=== PATIENT | male | born 1980 | race Caucasian/White ===

== ENCOUNTER 2016-11-06 09:40 | Emergency (ER) | payer OTHER, BC ==
[2016-11-06] MEDS ORDERED: KETOROLAC 30 MG/ML VIAL (J1885) As Ordered ONE (10:44)
[2016-11-06] MEDS ORDERED: ONDANSETRON 4MG/2ML VIAL (J2405) As Ordered ONE (10:44)
[2016-11-06 10:49] LABS: BASO # 0.1 K/mm3 (0.0-0.2); BASO % 2.3 % (0.0-1.0); EOS # 0.1 K/mm3 (0.0-0.50); EOS % 2.2 % (0.0-3.0); LARGE UNSTAINED CELL # 0.1 K/mm3 (0.0-0.4); LARGE UNSTAINED CELL % 1.6 % (0.0-4.0); LYMPH % 34.4 % (24.0-44.0); MEAN CORPUSCULAR HEMOGLOBIN 28.7 pg (27.0-33.0); MEAN CORPUSCULAR HGB CONC 34.9 g/dl (32.0-36.5); MEAN CORPUSCULAR VOLUME 82.2 fl (80.0-96.0); MONO # 0.3 K/mm3 (0.0-0.8); MONO % 5.1 % (0.0-5.0); NEUTROPHILS % 54.3 % (36.0-66.0); PLATELET COUNT, AUTOMATED 238 k/mm3 (150-450); RED CELL DISTRIBUTION WIDTH 13.4 % (11.5-14.5); WHITE BLOOD COUNT 5.6 K/mm3 (4.0-10.0)
[2016-11-06 11:09] LABS: ALBUMIN 4.5 GM/DL (3.2-5.2); ALBUMIN/GLOBULIN RATIO 1.29 (1.00-1.93); ALKALINE PHOSPHATASE 98 U/L (45-117); ALT/SGPT 38 U/L (12-78); AMYLASE 88 U/L (25-115); ANION GAP 6 MEQ/L (8-16); AST/SGOT 16 U/L (15-37); BILIRUBIN,DIRECT 0.2 MG/DL (0.0-0.2); BILIRUBIN,TOTAL 0.5 MG/DL (0.2-1.0); BLOOD UREA NITROGEN 12 MG/DL (7-18); CALCIUM LEVEL 9.4 MG/DL (8.5-10.1); CARBON DIOXIDE LEVEL 32 MEQ/L (21-32); CHLORIDE LEVEL 105 MEQ/L (98-107); CREATININE FOR GFR 1.15 MG/DL (0.70-1.30); GLOMERULAR FILTRATION RATE > 60.0 (>60); GLUCOSE, FASTING 99 MG/DL (70-105); POTASSIUM SERUM 3.9 MEQ/L (3.5-5.1); SODIUM LEVEL 143 MEQ/L (136-145)
[2016-11-06] MEDS ORDERED: ISOVUE-370 76% 100ML VIAL (Q9967) As Ordered ONE (11:15)
--- NOTE | 2016-11-06 12:00 | REP ---
CT STUDY OF THE ABDOMEN AND PELVIS WITH IV BUT WITHOUT ORAL CONTRAST: HISTORY: Lower abdominal pain and rectal bleeding. CT contrast dose: 100 mL of Isovue [address] FINDINGS: Digital sandal parts assembler radiograph is unremarkable. The lung bases are clear. The liver and the spleen are homogeneous in texture. The spleen is felt to be mildly enlarged measuring up to 14 cm in greatest dimension. No focal splenic lesion is seen. There is an accessory splenule however anteriorly and inferiorly adjacent to the spleen. This measures 3 cm in greatest diameter. No pancreatic abnormality is observed. No adrenal lesion is seen on either side. The gallbladder is unremarkable, small and contracted in appearance. The kidneys enhance symmetrically are morphologically intact. No retroperitoneal mass or adenopathy is seen. A normal caliber aorta is seen. Small and large intestinal bowel loops are unremarkable. A normal appendix is seen. No abdominal wall defect is observed. There are one or two dystrophic calcifications in the prostate. Seminal vesicles and urinary bladder are intact. Bone window settings shows no acute bony abnormality. There is an old wedge compression fracture deformity at the L3 vertebral body level with secondary osteophyte formation anteriorly. IMPRESSION: 1. Mildly enlarged spleen, 14 cm. 2. Otherwise no acute intra-abdominal abnormality. Dystrophic calcifications in the prostate gland. 3. Normal appendix .4. Old mild compression fracture deformity at L3. Signed by Arnulfo Willson MD 11/06/2016 01:19 P
--- NOTE | 2016-11-06 13:43 | EDDOCDS ---
Physician Documentation [facility] Name: Alexi Carnes Age: 36 yrs Sex: Male : 1980 Arrival Date: 11/06/2016 Time: 09:40 Bed I1 / M1 Private MD: [facility] Disposition: 11/06/16 13:15 Discharged to Home/Self Care. Impression: Lower abdominal pain, unspecified, Hemorrhage of anus and rectum - Bloody Stool, Splenomegaly, not elsewhere classified, Calculus of prostate - Prostate Calcifications on CT abd/pelvis, Wedge compression fracture of first lumbar vertebra - L3. - Condition is Stable. - Discharge Instructions: Abdominal Pain, Adult, Gastrointestinal Bleeding, [id number], Back, Compression Fracture, Enlarged Spleen. - Prescriptions for Bentyl 20 mg Oral Tablet - take 1 tablet by ORAL route every 6 hours As needed; 20 tablet. ZOFRAN ODT 4 mg - dissolve 1 tablet by ORAL route 4 times per day As needed do not chew, do not swallow whole; 10 tablet. Colace 100 mg Oral Tablet - take 1 tablet by ORAL route every 12 hours; 14 tablet. - Medication Reconciliation, Local Pharmacy Hours form. - Follow up: [facility]; When: 1 - 2 days; Reason: Recheck today's complaints, Continuance of care. Follow up: Emergency Department; Reason: Worsening of conditions. Follow up: [facility]; When: Call to arrange an appointment; Reason: Further diagnostic work-up, Recheck today's complaints, Continuance of care. Follow up: Orthopaedics, [facility]; When: Call to arrange an appointment; Reason: Further diagnostic work-up, Recheck today's complaints, Continuance of care. - Problem is new. - Symptoms have improved. Historical: - Allergies: SULFA (SULFONAMIDES); - Home Meds: 1. Clonazepam Oral as needed 2. Bupropion Unknown Oral once daily (Last dose: 11/06/2016) - PMHx: Anxiety; PTSD; - PSHx: none; - Social history: Smoking status: Patient states was never smoker of tobacco. No barriers to communication noted, The patient speaks fluent Portuguese, Speaks appropriately for age. - Family history: Not pertinent. - : The pt / caregiver states he / she is not on anticoagulants. Home medication list is obtained from the patient. - Exposure Risk Screening:: None identified. Vital Signs: 11/06 09:42 BP 154 / 91; Pulse 81; Resp 16; Temp 97.8(O); Pulse Ox 97% ; Weight 90.72 kg / 200 lbs; cmb Height 6 ft. 0 in. (182.88 cm); Pain 0/10; 12:26 BP 121 / 75; Pulse 68; Resp 18; Temp 96.8; Pulse Ox 98% ; Pain 0/10; jam1 13:26 BP 132 / 80; Pulse 73; Resp 18; Temp 97.0; Pulse Ox 98% ; Pain 0/10; jam1 09:42 Body Mass Index 27.12 (90.72 kg, 182.88 cm) cmb MDM: 10:28 NS 0.9% 1000 ml IV at bolus once ordered. ef1 10:28 Ondansetron 4 mg IVP once ordered. ef1 10:28 ketorolac 30 mg IVP once ordered. ef1 10:28 IV Saline Lock ordered. ef1 10:28 Undress patient appropriately for examination ordered. ef1 10:29 Amylase Ordered. EDMS 10:29 Basic Metabolic Profile Ordered. EDMS 10:29 CBC with Diff Ordered. EDMS 10:29 Lipase Ordered. EDMS 10:29 Liver Profile Ordered. EDMS 10:29 Urinalysis Ordered. EDMS 10:29 Urine Culture Ordered. EDMS 10:29 CT ABD & PELVIS: IV Contrast Only Ordered. EDMS 10:29 NOTHING BY MOUTH+DIET ordered. EDMS 11:50 Financial registration complete. mm15 12:51 Basic Metabolic Profile Reviewed. ef1 12:51 CBC with Diff Reviewed. ef1 12:51 Amylase Reviewed. ef1 12:51 Lipase Reviewed. ef1 12:51 Liver Profile Reviewed. ef1 12:51 Urinalysis Reviewed. ef1 12:51 CT ABD & PELVIS: IV Contrast Only Reviewed. ef1 12:55 [facility] Payment Agreement was scanned into Real Time Content and attached to record. mm15 Administered Medications: 10:50 Drug: NS 0.9% 1000 ml [sodium chloride 0.9 % intravenous solution] Route: IV; Rate: mcp bolus; Site: right antecubital; 13:42 Follow up: IV Status: Completed infusion; IV Intake: 1000ml ms18 10:51 Drug: Ondansetron 4 mg [ondansetron HCl 2 mg/mL intravenous solution (2 mL)] Route: mcp IVP; Site: right antecubital; 13:42 Follow up: Response: No Adverse Reaction ms18 10:51 Drug: ketorolac 30 mg [ketorolac 30 mg/mL (1 mL) injection solution (1 mL)] Route: IVP; mcp Site: right antecubital; 13:43 Follow up: Response: No Adverse Reaction ms18 Signatures: Dispatcher [employer] Lis Schmitz RN RN kr3 Mariana Ricketts, PA-C PA-C ef1 René Brown mm15 Indu Shankar RN RN ms18 Elen Hickey RN [facility] The chart was reviewed and I authenticate all verbal orders and agree with the evaluation and treatment provided.Attachments: 12:55 [facility] Payment Agreement mm15 MTDD
--- NOTE | 2016-11-06 13:44 | EDDOCDS ---
Nurse's Notes [facility] Name: Alexi Carnes Age: 36 yrs Sex: Male : 1980 Arrival Date: 11/06/2016 Time: 09:40 Bed I1 / M1 Private MD: [facility] [place] Diagnosis: Lower abdominal pain, unspecified;Hemorrhage of anus and rectum-Bloody Stool;Splenomegaly, not elsewhere classified;Calculus of prostate-Prostate Calcifications on CT abd/pelvis;Wedge compression fracture of first lumbar vertebra-L3 Presentation: 11/06 09:46 Presenting complaint: Patient states: 'crapping' out blood for past week. Reports has kr3 been having difficulty with bowel movements for past week. Adult Sepsis Screening: The patient does not have new or worsening altered mentation. Patient's respiratory rate is less than 22. Systolic blood pressure is greater than 100. Patient has a qSOFA score of 0- Negative Sepsis Screen. Suicide/Homicide risk assessment- the patient denies having any suicidal and/or homicidal ideations and does not present with any other emotional, behavioral or mental health complaints. Status: Patient is not a sales service representative or dependent. Transition of care: patient was not received from another setting of care. 09:46 Acuity: BREEZY Level 3 kr3 09:46 Method Of Arrival: Walkin/Carried/Asstd kr3 Triage Assessment: 09:49 General: Appears in no apparent distress, comfortable, Behavior is cooperative. Pain: kr3 Denies pain. Pt Declines HIV testing. Respiratory: Respiratory effort is even, unlabored. GI: Reports bloody stools. Historical: - Allergies: SULFA (SULFONAMIDES); - Home Meds: 1. Clonazepam Oral as needed 2. Bupropion Unknown Oral once daily (Last dose: 11/06/2016) - PMHx: Anxiety; PTSD; - PSHx: none; - Social history: Smoking status: Patient states was never smoker of tobacco. No barriers to communication noted, The patient speaks fluent Panamanian, Speaks appropriately for age. - Family history: Not pertinent. - : The pt / caregiver states he / she is not on anticoagulants. Home medication list is obtained from the patient. - Exposure Risk Screening:: None identified. Screenin:32 Screening information is obtained from the patient. Fall risk: No risks identified. ms18 Assistance ADL's: requires no assistance with activities of daily living. Abuse/DV Screen: The patient / caregiver reports he/she is: not in a situation that causes fear, pain or injury. Nutritional screening: No deficits noted. Advance Directives: There is no living will. home support is adequate. Assessment: 11:32 General: Appears in no apparent distress, comfortable, Behavior is appropriate for age, ms18 cooperative. Neurological: Level of Consciousness is awake, alert, obeys commands, Oriented to person, place, time, Gait is steady, Speech is normal. Respiratory: Airway is patent Respiratory effort is even, unlabored. GI: Abdomen is non- distended. Derm: Skin is pink, warm & dry. 12:30 General: Pt in no acute distress. Awaiting CT results. Will continue to monitor pt. ms18 13:40 General: Appears in no apparent distress, comfortable, Behavior is appropriate for age, ms18 cooperative. Pain: Denies pain. Neurological: Level of Consciousness is awake, alert, obeys commands, Oriented to person, place, time. Respiratory: Airway is patent Respiratory effort is even, unlabored. GI: Abdomen is non- distended. Derm: Skin is pink, warm & dry. Vital Signs: 09:42 BP 154 / 91; Pulse 81; Resp 16; Temp 97.8(O); Pulse Ox 97% ; Weight 90.72 kg; Height 6 cmb ft. 0 in. (182.88 cm); Pain 0/10; 12:26 BP 121 / 75; Pulse 68; Resp 18; Temp 96.8; Pulse Ox 98% ; Pain 0/10; jam1 13:26 BP 132 / 80; Pulse 73; Resp 18; Temp 97.0; Pulse Ox 98% ; Pain 0/10; jam1 09:42 Body Mass Index 27.12 (90.72 kg, 182.88 cm) cmb Vitals: 09:42 Log In Time: November 06, 2016 at 09:40. cmb ED Course: 09:41 Patient visited by Enma Jay. cmb 09:41 Patient moved to Waiting cmb 09:42 [facility] [place] is Private Physician. cmb 09:43 Patient moved to Pre RCE cmb 09:48 Triage Initiated kr3 09:50 Patient moved to Triage 1 kr3 10:02 Mariana Ricketts PA-C is PHCP. ef1 10:02 Leslie Krause MD is Attending Physician. ef1 10:20 Patient visited by Mariana Ricketts PA-C. ef1 10:31 Patient moved to I1 / M1 kr3 10:34 Urinalysis Sent. kr3 10:34 Urine Culture Sent. kr3 10:42 Amylase Sent. mcp 10:42 Basic Metabolic Profile Sent. mcp 10:42 CBC with Diff Sent. mcp 10:42 Lipase Sent. mcp 10:42 Liver Profile Sent. mcp 10:43 Inserted saline lock: 18 gauge in right antecubital area and blood collected. The [facility] patient tolerated the procedure well. No procedures done that require assistance. Labs drawn. (by ED staff). Sent per order to lab. 10:51 Patient visited by Mariana Ricketts PA-C. ef1 11:21 Patient visited by Indu Shankar RN. ms18 11:[address] ms18 11:31 Patient moved to I1 / M1 srm 11:32 The patient / caregiver is instructed regarding the plan of care and ED course. ms18 Accompanied by Significant Other, Patient has correct armband on for positive identification. Placed in gown. Bed in low position. Property :Personal belongings accompany Pt. 12:34 CT ABD & PELVIS: IV Contrast Only Returned. EDMS 12:38 Patient visited by Indu Shankar RN. ms18 12:51 Patient visited by Mariana Ricketts PA-C. ef1 12:55 [facility] Payment Agreement was scanned into User Replay and attached to record. mm15 13:06 Patient visited by Mariana Ricketts PA-C. ef1 13:15 [facility] is Referral Physician. ef1 13:15 [facility] is Referral Physician. ef1 13:17 [facility]. ef1 13:40 Patient visited by Indu Shankar RN. ms18 13:40 Discontinued IV lock intact, bleeding controlled, pressure dressing applied, No ms18 redness/swelling at site. Administered Medications: 10:50 Drug: NS 0.9% 1000 ml [sodium chloride 0.9 % intravenous solution] Route: IV; Rate: mcp bolus; Site: right antecubital; 13:42 Follow up: IV Status: Completed infusion; IV Intake: 1000ml ms18 10:51 Drug: Ondansetron 4 mg [ondansetron HCl 2 mg/mL intravenous solution (2 mL)] Route: mcp IVP; Site: right antecubital; 13:42 Follow up: Response: No Adverse Reaction ms18 10:51 Drug: ketorolac 30 mg [ketorolac 30 mg/mL (1 mL) injection solution (1 mL)] Route: IVP; mcp Site: right antecubital; 13:43 Follow up: Response: No Adverse Reaction ms18 Intake: 13:42 IV: 1000.00ml; Total: 1000.00ml. ms18 Order Results: Lab Order: Amylase; SPEC'M 11/06/16 10:40 Test: AMYLASE; Value: 88; Range: 25-115; Units: U/L; Status: F Lab Order: Basic Metabolic Profile; SPEC'M 11/06/16 10:40 Test: GLUCOSE, FASTING; Value: 99; Range: 70-105; Units: MG/DL; Status: F Test: BLOOD UREA NITROGEN; Value: 12; Range: 7-18; Units: MG/DL; Status: F Test: CREATININE FOR GFR; Value: 1.15; Range: 0.70-1.30; Units: MG/DL; Status: F Test: GLOMERULAR FILTRATION RATE; Value: > 60.0; Range: >60; Status: F Test: SODIUM LEVEL; Value: 143; Range: 136-145; Units: MEQ/L; Status: F Test: POTASSIUM SERUM; Value: 3.9; Range: 3.5-5.1; Units: MEQ/L; Status: F Test: CHLORIDE LEVEL; Value: 105; Range: 98-107; Units: MEQ/L; Status: F Test: CARBON DIOXIDE LEVEL; Value: 32; Range: 21-32; Units: MEQ/L; Status: F Test: ANION GAP; Value: 6; Range: 8-16; Abnormal: Below low normal; Units: MEQ/L; Status: F Test: CALCIUM LEVEL; Value: 9.4; Range: 8.5-10.1; Units: MG/DL; Status: F Test Note: ; Units are mL/min/1.73 m2 Chronic Kidney Disease Staging per NKF: Stage I & II GFR >=60 Normal to Mildly Decreased Stage III GFR 30-59 Moderately Decreased Stage IV GFR 15-29 Severely Decreased Stage V GFR <15 Very Little GFR Left ESRD GFR <15 on BRICKLAYER APPRENTICE Lab Order: CBC with Diff; SPEC'M 11/06/16 10:40 Test: WHITE BLOOD COUNT; Value: 5.6; Range: 4.0-10.0; Units: K/mm3; Status: F Test: RED BLOOD COUNT; Value: 5.80; Range: 4.30-6.10; Units: M/mm3; Status: F Test: HEMOGLOBIN; Value: 16.7; Range: 14.0-18.0; Units: g/dl; Status: F Test: HEMATOCRIT; Value: 47.7; Range: 42.0-52.0; Units: %; Status: F Test: MEAN CORPUSCULAR VOLUME; Value: 82.2; Range: 80.0-96.0; Units: fl; Status: F Test: MEAN CORPUSCULAR HEMOGLOBIN; Value: 28.7; Range: 27.0-33.0; Units: pg; Status: F Test: MEAN CORPUSCULAR HGB CONC; Value: 34.9; Range: 32.0-36.5; Units: g/dl; Status: F Test: RED CELL DISTRIBUTION WIDTH; Value: 13.4; Range: 11.5-14.5; Units: %; Status: F Test: PLATELET COUNT, AUTOMATED; Value: 238; Range: 150-450; Units: k/mm3; Status: F Test: NEUTROPHILS %; Value: 54.3; Range: 36.0-66.0; Units: %; Status: F Test: LYMPH %; Value: 34.4; Range: 24.0-44.0; Units: %; Status: F Test: MONO %; Value: 5.1; Range: 0.0-5.0; Abnormal: Above high normal; Units: %; Status: F Test: EOS %; Value: 2.2; Range: 0.0-3.0; Units: %; Status: F Test: BASO %; Value: 2.3; Range: 0.0-1.0; Abnormal: Above high normal; Units: %; Status: F Test: LARGE UNSTAINED CELL %; Value: 1.6; Range: 0.0-4.0; Units: %; Status: F Test: NEUTROPHILS #; Value: 3.0; Range: 1.8-7.7; Units: K/mm3; Status: F Test: LYMPH #; Value: 2.0; Range: 1.5-4.5; Units: K/mm3; Status: F Test: MONO #; Value: 0.3; Range: 0.0-0.8; Units: K/mm3; Status: F Test: EOS #; Value: 0.1; Range: 0.0-0.50; Units: K/mm3; Status: F Test: BASO #; Value: 0.1; Range: 0.0-0.2; Units: K/mm3; Status: F Test: LARGE UNSTAINED CELL #; Value: 0.1; Range: 0.0-0.4; Units: K/mm3; Status: F Lab Order: Lipase; [facility]' 11/06/16 10:40 Test: LIPASE; Value: 335; Range: 73-393; Units: U/L; Status: F Lab Order: Liver Profile; [facility]' 11/06/16 10:40 Test: AST/SGOT; Value: 16; Range: 15-37; Units: U/L; Status: F Test: ALT/SGPT; Value: 38; Range: 12-78; Units: U/L; Status: F Test: ALKALINE PHOSPHATASE; Value: 98; Range: 45-117; Units: U/L; Status: F Test: BILIRUBIN,TOTAL; Value: 0.5; Range: 0.2-1.0; Units: MG/DL; Status: F Test: BILIRUBIN,DIRECT; Value: 0.2; Range: 0.0-0.2; Units: MG/DL; Status: F Test: TOTAL PROTEIN; Value: 8.0; Range: 6.4-8.2; Units: GM/DL; Status: F Test: ALBUMIN; Value: 4.5; Range: 3.2-5.2; Units: GM/DL; Status: F Test: ALBUMIN/GLOBULIN RATIO; Value: 1.29; Range: 1.00-1.93; Status: F Lab Order: Urinalysis; SPEC' 11/06/16 10:32 Test: APPEARANCE, URINE; Value: CLEAR; Range: CLEAR; Status: F Test: COLOR, URINE; Value: YELLOW; Range: YELLOW; Status: F Test: PH,URINE; Value: 5.0; Range: 5.0-9.0; Units: UNITS; Status: F Test: SPECIFIC GRAVITY URINE AUTO; Value: 1.018; Range: 1.002-1.035; Status: F Test: PROTEIN, URINE AUTO; Value: NEGATIVE; Range: NEGATIVE; Units: mg/dL; Status: F Test: GLUCOSE, URINE (UA) AUTO; Value: NEGATIVE; Range: NEGATIVE; Units: mg/dL; Status: F Test: KETONE, URINE AUTO; Value: NEGATIVE; Range: NEGATIVE; Units: mg/dL; Status: F Test: UROBILINOGEN, URINE AUTO; Value: 0.2; Range: 0.0-2.0; Units: mg/dL; Status: F Test: BILIRUBIN, URINE AUTO; Value: NEGATIVE; Range: NEGATIVE; Status: F Test: NITRITE, URINE AUTO; Value: NEGATIVE; Range: NEGATIVE; Status: F Test: LEUKOCYTE ESTERASE, URINE AUTO; Value: NEGATIVE; Range: NEGATIVE; Status: F Test: BLOOD, URINE BLOOD; Value: NEGATIVE; Range: NEGATIVE; Status: F Test: WBC, URINE AUTO; Value: 1; Range: 0-3; Units: /HPF; Status: F Test: RBC, URINE AUTO; Value: 1; Range: 0-3; Units: /HPF; Status: F Test: BACTERIA, URINE AUTO; Value: NEGATIVE; Range: NEGATIVE; Status: F Test: SQUAMOUS EPITHELIAL CELL UR AU; Value: 0; Range: 0-6; Units: /HPF; Status: F Test: MUCUS, URINE; Value: SMALL; Range: NEGATIVE; Status: F Test: HYALINE CAST, URINE AUTO; Value: 0; Range: 0-1; Units: /LPF; Status: F Radiology Order: CT ABD & PELVIS: IV Contrast Only Test: CT ABD & PELVIS: IV Contrast Only REASON FOR EXAMINATION: lower abd pain and rectal bleeding; CT STUDY OF THE ABDOMEN AND PELVIS WITH IV BUT WITHOUT ORAL CONTRAST:; ; HISTORY: Lower abdominal pain and rectal bleeding.; ; CT contrast dose: 100 mL of Isovue 370 is administered intravenously.; ; CT FINDINGS: Digital director of marketing and promotions radiograph is unremarkable. The lung bases are; clear. The liver and the spleen are homogeneous in texture. The spleen is felt; to be mildly enlarged measuring up to 14 cm in greatest dimension. No focal; splenic lesion is seen. There is an accessory splenule however anteriorly and; inferiorly adjacent to the spleen. This measures 3 cm in greatest diameter. No; pancreatic abnormality is observed. No adrenal lesion is seen on either side.; The gallbladder is unremarkable, small and contracted in appearance. The kidneys; enhance symmetrically are morphologically intact. No retroperitoneal mass or; adenopathy is seen. A normal caliber aorta is seen. Small and large intestinal; bowel loops are unremarkable. A normal appendix is seen. No abdominal wall; defect is observed. There are one or two dystrophic calcifications in the; prostate. Seminal vesicles and urinary bladder are intact. Bone window settings; shows no acute bony abnormality. There is an old wedge compression fracture; deformity at the L3 vertebral body level with secondary osteophyte formation; anteriorly.; ; IMPRESSION:; 1. Mildly enlarged spleen, 14 cm.; 2. Otherwise no acute intra-abdominal abnormality. Dystrophic calcifications in; the prostate gland.; 3. Normal appendix.; 4. Old mild compression fracture deformity at L3.; ; ; ; ; Unreviewed; Outcome: 11:32 CT Study completed. ms18 13:15 Discharge ordered by Provider. ef1 13:40 Discharge Assessment: Patient awake, alert and oriented x 3. No cognitive and/or ms18 functional deficits noted. Patient verbalized understanding of disposition instructions. patient administered narcotics - no. The following High Risk Discharge criteria are identified: None. Discharged to home ambulatory, with family. Condition: good Condition: stable Condition: improved. Discharge instructions given to patient, Instructed on discharge instructions, follow up and referral plans. medication usage, Demonstrated understanding of instructions, medications, Pt was receptive of discharge instructions/ teaching. Prescriptions given X 3. 13:43 Patient left the ED. ms18 Signatures: Dispatcher [employer] EDMS Amrita Young RN Elen Mckenna RN Rachel Charles mcp, DINA STATISTICS TEACHER jam1 Lis Colvin RN RN kr3 Mariana Ricketts, PA-C PA-C ef1 Enma Jay cmb René Brown mm15 Indu Shankar RN RN ms18 MTDD
--- NOTE | 2016-11-08 14:44 | EDDOCDS ---
Physician Documentation [facility] Name: Alexi Carnes Age: 36 yrs Sex: Male : 1980 Arrival Date: 11/06/2016 Time: 09:40 Bed I1 / M1 Private MD: [facility] Disposition: 11/06/16 13:15 Discharged to Home/Self Care. Impression: Lower abdominal pain, unspecified, Hemorrhage of anus and rectum - Bloody Stool, Splenomegaly, not elsewhere classified, Calculus of prostate - Prostate Calcifications on CT abd/pelvis, Wedge compression fracture of first lumbar vertebra - L3. - Condition is Stable. - Discharge Instructions: Abdominal Pain, Adult, Gastrointestinal Bleeding, [place]au[place], Back, Compression Fracture, Enlarged Spleen. - Prescriptions for Bentyl 20 mg Oral Tablet - take 1 tablet by ORAL route every 6 hours As needed; 20 tablet. ZOFRAN ODT 4 mg - dissolve 1 tablet by ORAL route 4 times per day As needed do not chew, do not swallow whole; 10 tablet. Colace 100 mg Oral Tablet - take 1 tablet by ORAL route every 12 hours; 14 tablet. - Medication Reconciliation, Local Pharmacy Hours form. - Follow up: [facility]; When: 1 - 2 days; Reason: Recheck today's complaints, Continuance of care. Follow up: Emergency Department; Reason: Worsening of conditions. Follow up: [facility]; When: Call to arrange an appointment; Reason: Further diagnostic work-up, Recheck today's complaints, Continuance of care. Follow up: Orthopaedics, [facility]; When: Call to arrange an appointment; Reason: Further diagnostic work-up, Recheck today's complaints, Continuance of care. - Problem is new. - Symptoms have improved. Historical: - Allergies: SULFA (SULFONAMIDES); - Home Meds: 1. Clonazepam Oral as needed 2. Bupropion Unknown Oral once daily (Last dose: 11/06/2016) - PMHx: Anxiety; PTSD; - PSHx: none; - Social history: Smoking status: Patient states was never smoker of tobacco. No barriers to communication noted, The patient speaks fluent Lao, Speaks appropriately for age. - Family history: Not pertinent. - : The pt / caregiver states he / she is not on anticoagulants. Home medication list is obtained from the patient. - Exposure Risk Screening:: None identified. Vital Signs: 11/06 09:42 BP 154 / 91; Pulse 81; Resp 16; Temp 97.8(O); Pulse Ox 97% ; Weight 90.72 kg / 200 lbs; cmb Height 6 ft. 0 in. (182.88 cm); Pain 0/10; 12:26 BP 121 / 75; Pulse 68; Resp 18; Temp 96.8; Pulse Ox 98% ; Pain 0/10; jam1 13:26 BP 132 / 80; Pulse 73; Resp 18; Temp 97.0; Pulse Ox 98% ; Pain 0/10; jam1 09:42 Body Mass Index 27.12 (90.72 kg, 182.88 cm) cmb MDM: 10:28 NS 0.9% 1000 ml IV at bolus once ordered. ef1 10:28 Ondansetron 4 mg IVP once ordered. ef1 10:28 ketorolac 30 mg IVP once ordered. ef1 10:28 IV Saline Lock ordered. ef1 10:28 Undress patient appropriately for examination ordered. ef1 10:29 Amylase Ordered. EDMS 10:29 Basic Metabolic Profile Ordered. EDMS 10:29 CBC with Diff Ordered. EDMS 10:29 Lipase Ordered. EDMS 10:29 Liver Profile Ordered. EDMS 10:29 Urinalysis Ordered. EDMS 10:29 Urine Culture Ordered. EDMS 10:29 CT ABD & PELVIS: IV Contrast Only Ordered. EDMS 10:29 NOTHING BY MOUTH+DIET ordered. EDMS 11:50 Financial registration complete. mm15 12:51 Basic Metabolic Profile Reviewed. ef1 12:51 CBC with Diff Reviewed. ef1 12:51 Amylase Reviewed. ef1 12:51 Lipase Reviewed. ef1 12:51 Liver Profile Reviewed. ef1 12:51 Urinalysis Reviewed. ef1 12:51 CT ABD & PELVIS: IV Contrast Only Reviewed. ef1 12:55 [facility] Payment Agreement was scanned into Melty and attached to record. mm15 14:17 T-Sheet-- Draft Copy was scanned into Melty and attached to record. gb Administered Medications: 10:50 Drug: NS 0.9% 1000 ml [sodium chloride 0.9 % intravenous solution] Route: IV; Rate: mcp bolus; Site: right antecubital; 13:42 Follow up: IV Status: Completed infusion; IV Intake: 1000ml ms18 10:51 Drug: Ondansetron 4 mg [ondansetron HCl 2 mg/mL intravenous solution (2 mL)] Route: mcp IVP; Site: right antecubital; 13:42 Follow up: Response: No Adverse Reaction ms18 10:51 Drug: ketorolac 30 mg [ketorolac 30 mg/mL (1 mL) injection solution (1 mL)] Route: IVP; mcp Site: right antecubital; 13:43 Follow up: Response: No Adverse Reaction ms18 Signatures: Dispatcher MedHost EDMS Taylor Rg, Reg Reg gb Lis Colvin,RN RN kr3 Mariana Ricketts PA-C PALindsay ef1 René Brown mm15 Indu Shankar RN RN ms18 Elen Hickey RN [facility] The chart was reviewed and I authenticate all verbal orders and agree with the evaluation and treatment provided.Attachments: 12:55 [facility] Payment Agreement mm15 14:17 T-Sheet-- Draft Copy Chart Complete [facility]
--- NOTE | 2016-11-08 14:44 | EDDOCDS ---
Physician Documentation [facility] Name: Alexi Carnes Age: 36 yrs Sex: Male : 1980 Arrival Date: 11/06/2016 Time: 09:40 Bed I1 / M1 Private MD: [facility] Disposition: 11/06/16 13:15 Discharged to Home/Self Care. Impression: Lower abdominal pain, unspecified, Hemorrhage of anus and rectum - Bloody Stool, Splenomegaly, not elsewhere classified, Calculus of prostate - Prostate Calcifications on CT abd/pelvis, Wedge compression fracture of first lumbar vertebra - L3. - Condition is Stable. - Discharge Instructions: Abdominal Pain, Adult, Gastrointestinal Bleeding, Amhe-qf-Dwgr, Back, Compression Fracture, Enlarged Spleen. - Prescriptions for Bentyl 20 mg Oral Tablet - take 1 tablet by ORAL route every 6 hours As needed; 20 tablet. ZOFRAN ODT 4 mg - dissolve 1 tablet by ORAL route 4 times per day As needed do not chew, do not swallow whole; 10 tablet. Colace 100 mg Oral Tablet - take 1 tablet by ORAL route every 12 hours; 14 tablet. - Medication Reconciliation, Local Pharmacy Hours form. - Follow up: [facility]; When: 1 - 2 days; Reason: Recheck today's complaints, Continuance of care. Follow up: Emergency Department; Reason: Worsening of conditions. Follow up: [facility]; When: Call to arrange an appointment; Reason: Further diagnostic work-up, Recheck today's complaints, Continuance of care. Follow up: Orthopaedics, [facility]; When: Call to arrange an appointment; Reason: Further diagnostic work-up, Recheck today's complaints, Continuance of care. - Problem is new. - Symptoms have improved. Historical: - Allergies: SULFA (SULFONAMIDES); - Home Meds: 1. Clonazepam Oral as needed 2. Bupropion Unknown Oral once daily (Last dose: 11/06/2016) - PMHx: Anxiety; PTSD; - PSHx: none; - Social history: Smoking status: Patient states was never smoker of tobacco. No barriers to communication noted, The patient speaks fluent Romanian, Speaks appropriately for age. - Family history: Not pertinent. - : The pt / caregiver states he / she is not on anticoagulants. Home medication list is obtained from the patient. - Exposure Risk Screening:: None identified. Vital Signs: 11/06 09:42 BP 154 / 91; Pulse 81; Resp 16; Temp 97.8(O); Pulse Ox 97% ; Weight 90.72 kg / 200 lbs; cmb Height 6 ft. 0 in. (182.88 cm); Pain 0/10; 12:26 BP 121 / 75; Pulse 68; Resp 18; Temp 96.8; Pulse Ox 98% ; Pain 0/10; jam1 13:26 BP 132 / 80; Pulse 73; Resp 18; Temp 97.0; Pulse Ox 98% ; Pain 0/10; jam1 09:42 Body Mass Index 27.12 (90.72 kg, 182.88 cm) cmb MDM: 10:28 NS 0.9% 1000 ml IV at bolus once ordered. ef1 10:28 Ondansetron 4 mg IVP once ordered. ef1 10:28 ketorolac 30 mg IVP once ordered. ef1 10:28 IV Saline Lock ordered. ef1 10:28 Undress patient appropriately for examination ordered. ef1 10:29 Amylase Ordered. EDMS 10:29 Basic Metabolic Profile Ordered. EDMS 10:29 CBC with Diff Ordered. EDMS 10:29 Lipase Ordered. EDMS 10:29 Liver Profile Ordered. EDMS 10:29 Urinalysis Ordered. EDMS 10:29 Urine Culture Ordered. EDMS 10:29 CT ABD & PELVIS: IV Contrast Only Ordered. EDMS 10:29 NOTHING BY MOUTH+DIET ordered. EDMS 11:50 Financial registration complete. mm15 12:51 Basic Metabolic Profile Reviewed. ef1 12:51 CBC with Diff Reviewed. ef1 12:51 Amylase Reviewed. ef1 12:51 Lipase Reviewed. ef1 12:51 Liver Profile Reviewed. ef1 12:51 Urinalysis Reviewed. ef1 12:51 CT ABD & PELVIS: IV Contrast Only Reviewed. ef1 12:55 [facility] Payment Agreement was scanned into Savioke and attached to record. mm15 14:17 T-Sheet-- Draft Copy was scanned into Savioke and attached to record. gb Administered Medications: 10:50 Drug: NS 0.9% 1000 ml [sodium chloride 0.9 % intravenous solution] Route: IV; Rate: mcp bolus; Site: right antecubital; 13:42 Follow up: IV Status: Completed infusion; IV Intake: 1000ml ms18 10:51 Drug: Ondansetron 4 mg [ondansetron HCl 2 mg/mL intravenous solution (2 mL)] Route: mcp IVP; Site: right antecubital; 13:42 Follow up: Response: No Adverse Reaction ms18 10:51 Drug: ketorolac 30 mg [ketorolac 30 mg/mL (1 mL) injection solution (1 mL)] Route: IVP; mcp Site: right antecubital; 13:43 Follow up: Response: No Adverse Reaction ms18 Signatures: Dispatcher MedHost EDMS Taylor Rg, Reg Reg gb Lis Colvin,RN RN kr3 Mariana Ricketts PA-C PALindsay ef1 René Brown mm15 Indu Shankar RN RN ms18 Elen Hickey RN [facility] The chart was reviewed and I authenticate all verbal orders and agree with the evaluation and treatment provided.Attachments: 12:55 [facility] Payment Agreement mm15 14:17 T-Sheet-- Draft Copy Chart Complete [facility]
--- NOTE | 2016-11-08 14:45 | EDDOCDS ---
Nurse's Notes [facility] Name: Alexi Carnes Age: 36 yrs Sex: Male : 1980 Arrival Date: 11/06/2016 Time: 09:40 Bed I1 / M1 Private MD: [facility] [place] Diagnosis: Lower abdominal pain, unspecified;Hemorrhage of anus and rectum-Bloody Stool;Splenomegaly, not elsewhere classified;Calculus of prostate-Prostate Calcifications on CT abd/pelvis;Wedge compression fracture of first lumbar vertebra-L3 Presentation: 11/06 09:46 Presenting complaint: Patient states: 'crapping' out blood for past week. Reports has kr3 been having difficulty with bowel movements for past week. Adult Sepsis Screening: The patient does not have new or worsening altered mentation. Patient's respiratory rate is less than 22. Systolic blood pressure is greater than 100. Patient has a qSOFA score of 0- Negative Sepsis Screen. Suicide/Homicide risk assessment- the patient denies having any suicidal and/or homicidal ideations and does not present with any other emotional, behavioral or mental health complaints. Status: Patient is not a sales service assistant or dependent. Transition of care: patient was not received from another setting of care. 09:46 Acuity: BREEZY Level 3 kr3 09:46 Method Of Arrival: Walkin/Carried/Asstd kr3 Triage Assessment: 09:49 General: Appears in no apparent distress, comfortable, Behavior is cooperative. Pain: kr3 Denies pain. Pt Declines HIV testing. Respiratory: Respiratory effort is even, unlabored. GI: Reports bloody stools. Historical: - Allergies: SULFA (SULFONAMIDES); - Home Meds: 1. Clonazepam Oral as needed 2. Bupropion Unknown Oral once daily (Last dose: 11/06/2016) - PMHx: Anxiety; PTSD; - PSHx: none; - Social history: Smoking status: Patient states was never smoker of tobacco. No barriers to communication noted, The patient speaks fluent [place], Speaks appropriately for age. - Family history: Not pertinent. - : The pt / caregiver states he / she is not on anticoagulants. Home medication list is obtained from the patient. - Exposure Risk Screening:: None identified. Screenin:32 Screening information is obtained from the patient. Fall risk: No risks identified. ms18 Assistance ADL's: requires no assistance with activities of daily living. Abuse/DV Screen: The patient / caregiver reports he/she is: not in a situation that causes fear, pain or injury. Nutritional screening: No deficits noted. Advance Directives: There is no living will. home support is adequate. Assessment: 11:32 General: Appears in no apparent distress, comfortable, Behavior is appropriate for age, ms18 cooperative. Neurological: Level of Consciousness is awake, alert, obeys commands, Oriented to person, place, time, Gait is steady, Speech is normal. Respiratory: Airway is patent Respiratory effort is even, unlabored. GI: Abdomen is non- distended. Derm: Skin is pink, warm & dry. 12:30 General: Pt in no acute distress. Awaiting CT results. Will continue to monitor pt. ms18 13:40 General: Appears in no apparent distress, comfortable, Behavior is appropriate for age, ms18 cooperative. Pain: Denies pain. Neurological: Level of Consciousness is awake, alert, obeys commands, Oriented to person, place, time. Respiratory: Airway is patent Respiratory effort is even, unlabored. GI: Abdomen is non- distended. Derm: Skin is pink, warm & dry. Vital Signs: 09:42 BP 154 / 91; Pulse 81; Resp 16; Temp 97.8(O); Pulse Ox 97% ; Weight 90.72 kg; Height 6 cmb ft. 0 in. (182.88 cm); Pain 0/10; 12:26 BP 121 / 75; Pulse 68; Resp 18; Temp 96.8; Pulse Ox 98% ; Pain 0/10; jam1 13:26 BP 132 / 80; Pulse 73; Resp 18; Temp 97.0; Pulse Ox 98% ; Pain 0/10; jam1 09:42 Body Mass Index 27.12 (90.72 kg, 182.88 cm) cmb Vitals: 09:42 Log In Time: November 06, 2016 at 09:40. cmb ED Course: 09:41 Patient visited by Enma Jay. cmb 09:41 Patient moved to Waiting cmb 09:42 [facility] [place] is Private Physician. cmb 09:43 Patient moved to Pre RCE cmb 09:48 Triage Initiated kr3 09:50 Patient moved to Triage 1 kr3 10:02 [facility] Ricketts [facility]. ef1 10:02 Leslie Krause MD is Attending Physician. ef1 10:20 Patient visited by Mariana Ricketts PA-C. ef1 10:31 Patient moved to I1 / M1 kr3 10:34 Urinalysis Sent. kr3 10:34 Urine Culture Sent. kr3 10:42 Amylase Sent. mcp 10:42 Basic Metabolic Profile Sent. [facility] 10:42 CBC with Diff Sent. [facility] 10:42 Lipase Sent. mcp 10:42 Liver Profile Sent. [facility] 10:43 Inserted saline lock: 18 gauge in right antecubital area and blood collected. The [facility] patient tolerated the procedure well. No procedures done that require assistance. Labs drawn. (by ED staff). Sent per order to lab. 10:51 Patient visited by Mariana Ricketts PA-C. ef1 11:21 Patient visited by Indu Shankar RN. ms18 11:[address] ms18 11:31 Patient moved to I1 / M1 srm 11:32 The patient / caregiver is instructed regarding the plan of care and ED course. ms18 Accompanied by Significant Other, Patient has correct armband on for positive identification. Placed in gown. Bed in low position. Property :Personal belongings accompany Pt. 12:34 CT ABD & PELVIS: IV Contrast Only Returned. EDMS 12:38 Patient visited by Indu Shankar RN. ms18 12:51 Patient visited by Mariana Ricketts PA-C. ef1 12:55 [facility] Payment Agreement was scanned into ScanCafe and attached to record. mm15 13:06 Patient visited by Mariana Ricketts PA-C. ef1 13:15 [facility] is Referral Physician. ef1 13:15 [facility] is Referral Physician. ef1 13:[facility]. ef1 13:40 Patient visited by Indu Shankar RN. ms18 13:40 Discontinued IV lock intact, bleeding controlled, pressure dressing applied, No ms18 redness/swelling at site. 14:09 Patient name changed from Alexi\S\\S\Trice\S\ to Alexi\S\ \S\Trice. EDMS 14:10 CT ABD & PELVIS: IV Contrast Only Returned. EDMS 14:17 T-Sheet-- Draft Copy was scanned into ScanCafe and attached to record. gb Administered Medications: 10:50 Drug: NS 0.9% 1000 ml [sodium chloride 0.9 % intravenous solution] Route: IV; Rate: mcp bolus; Site: right antecubital; 13:42 Follow up: IV Status: Completed infusion; IV Intake: 1000ml ms18 10:51 Drug: Ondansetron 4 mg [ondansetron HCl 2 mg/mL intravenous solution (2 mL)] Route: mcp IVP; Site: right antecubital; 13:42 Follow up: Response: No Adverse Reaction ms18 10:51 Drug: ketorolac 30 mg [ketorolac 30 mg/mL (1 mL) injection solution (1 mL)] Route: IVP; mcp Site: right antecubital; 13:43 Follow up: Response: No Adverse Reaction ms18 Intake: 13:42 IV: 1000.00ml; Total: 1000.00ml. ms18 Order Results: Lab Order: Amylase; SPEC'M 11/06/16 10:40 Test: AMYLASE; Value: 88; Range: 25-115; Units: U/L; Status: F Lab Order: Basic Metabolic Profile; SPEC'M 11/06/16 10:40 Test: GLUCOSE, FASTING; Value: 99; Range: 70-105; Units: MG/DL; Status: F Test: BLOOD UREA NITROGEN; Value: 12; Range: 7-18; Units: MG/DL; Status: F Test: CREATININE FOR GFR; Value: 1.15; Range: 0.70-1.30; Units: MG/DL; Status: F Test: GLOMERULAR FILTRATION RATE; Value: > 60.0; Range: >60; Status: F Test: SODIUM LEVEL; Value: 143; Range: 136-145; Units: MEQ/L; Status: F Test: POTASSIUM SERUM; Value: 3.9; Range: 3.5-5.1; Units: MEQ/L; Status: F Test: CHLORIDE LEVEL; Value: 105; Range: 98-107; Units: MEQ/L; Status: F Test: CARBON DIOXIDE LEVEL; Value: 32; Range: 21-32; Units: MEQ/L; Status: F Test: ANION GAP; Value: 6; Range: 8-16; Abnormal: Below low normal; Units: MEQ/L; Status: F Test: CALCIUM LEVEL; Value: 9.4; Range: 8.5-10.1; Units: MG/DL; Status: F Test Note: ; Units are mL/min/1.73 m2 Chronic Kidney Disease Staging per NKF: Stage I & II GFR >=60 Normal to Mildly Decreased Stage III GFR 30-59 Moderately Decreased Stage IV GFR 15-29 Severely Decreased Stage V GFR <15 Very Little GFR Left ESRD GFR <15 on UNIT RECEPTIONIST Lab Order: CBC with Diff; SPEC'M 11/06/16 10:40 Test: WHITE BLOOD COUNT; Value: 5.6; Range: 4.0-10.0; Units: K/mm3; Status: F Test: RED BLOOD COUNT; Value: 5.80; Range: 4.30-6.10; Units: M/mm3; Status: F Test: HEMOGLOBIN; Value: 16.7; Range: 14.0-18.0; Units: g/dl; Status: F Test: HEMATOCRIT; Value: 47.7; Range: 42.0-52.0; Units: %; Status: F Test: MEAN CORPUSCULAR VOLUME; Value: 82.2; Range: 80.0-96.0; Units: fl; Status: F Test: MEAN CORPUSCULAR HEMOGLOBIN; Value: 28.7; Range: 27.0-33.0; Units: pg; Status: F Test: MEAN CORPUSCULAR HGB CONC; Value: 34.9; Range: 32.0-36.5; Units: g/dl; Status: F Test: RED CELL DISTRIBUTION WIDTH; Value: 13.4; Range: 11.5-14.5; Units: %; Status: F Test: PLATELET COUNT, AUTOMATED; Value: 238; Range: 150-450; Units: k/mm3; Status: F Test: NEUTROPHILS %; Value: 54.3; Range: 36.0-66.0; Units: %; Status: F Test: LYMPH %; Value: 34.4; Range: 24.0-44.0; Units: %; Status: F Test: MONO %; Value: 5.1; Range: 0.0-5.0; Abnormal: Above high normal; Units: %; Status: F Test: EOS %; Value: 2.2; Range: 0.0-3.0; Units: %; Status: F Test: BASO %; Value: 2.3; Range: 0.0-1.0; Abnormal: Above high normal; Units: %; Status: F Test: LARGE UNSTAINED CELL %; Value: 1.6; Range: 0.0-4.0; Units: %; Status: F Test: NEUTROPHILS #; Value: 3.0; Range: 1.8-7.7; Units: K/mm3; Status: F Test: LYMPH #; Value: 2.0; Range: 1.5-4.5; Units: K/mm3; Status: F Test: MONO #; Value: 0.3; Range: 0.0-0.8; Units: K/mm3; Status: F Test: EOS #; Value: 0.1; Range: 0.0-0.50; Units: K/mm3; Status: F Test: BASO #; Value: 0.1; Range: 0.0-0.2; Units: K/mm3; Status: F Test: LARGE UNSTAINED CELL #; Value: 0.1; Range: 0.0-0.4; Units: K/mm3; Status: F Lab Order: Lipase; SPEC'M 11/06/16 10:40 Test: LIPASE; Value: 335; Range: 73-393; Units: U/L; Status: F Lab Order: Liver Profile; SPEC'M 11/06/16 10:40 Test: AST/SGOT; Value: 16; Range: 15-37; Units: U/L; Status: F Test: ALT/SGPT; Value: 38; Range: 12-78; Units: U/L; Status: F Test: ALKALINE PHOSPHATASE; Value: 98; Range: 45-117; Units: U/L; Status: F Test: BILIRUBIN,TOTAL; Value: 0.5; Range: 0.2-1.0; Units: MG/DL; Status: F Test: BILIRUBIN,DIRECT; Value: 0.2; Range: 0.0-0.2; Units: MG/DL; Status: F Test: TOTAL PROTEIN; Value: 8.0; Range: 6.4-8.2; Units: GM/DL; Status: F Test: ALBUMIN; Value: 4.5; Range: 3.2-5.2; Units: GM/DL; Status: F Test: ALBUMIN/GLOBULIN RATIO; Value: 1.29; Range: 1.00-1.93; Status: F Lab Order: Urinalysis; SPEC'M 11/06/16 10:32 Test: APPEARANCE, URINE; Value: CLEAR; Range: CLEAR; Status: F Test: COLOR, URINE; Value: YELLOW; Range: YELLOW; Status: F Test: PH,URINE; Value: 5.0; Range: 5.0-9.0; Units: UNITS; Status: F Test: SPECIFIC GRAVITY URINE AUTO; Value: 1.018; Range: 1.002-1.035; Status: F Test: PROTEIN, URINE AUTO; Value: NEGATIVE; Range: NEGATIVE; Units: mg/dL; Status: F Test: GLUCOSE, URINE (UA) AUTO; Value: NEGATIVE; Range: NEGATIVE; Units: mg/dL; Status: F Test: KETONE, URINE AUTO; Value: NEGATIVE; Range: NEGATIVE; Units: mg/dL; Status: F Test: UROBILINOGEN, URINE AUTO; Value: 0.2; Range: 0.0-2.0; Units: mg/dL; Status: F Test: BILIRUBIN, URINE AUTO; Value: NEGATIVE; Range: NEGATIVE; Status: F Test: NITRITE, URINE AUTO; Value: NEGATIVE; Range: NEGATIVE; Status: F Test: LEUKOCYTE ESTERASE, URINE AUTO; Value: NEGATIVE; Range: NEGATIVE; Status: F Test: BLOOD, URINE BLOOD; Value: NEGATIVE; Range: NEGATIVE; Status: F Test: WBC, URINE AUTO; Value: 1; Range: 0-3; Units: /HPF; Status: F Test: RBC, URINE AUTO; Value: 1; Range: 0-3; Units: /HPF; Status: F Test: BACTERIA, URINE AUTO; Value: NEGATIVE; Range: NEGATIVE; Status: F Test: SQUAMOUS EPITHELIAL CELL UR AU; Value: 0; Range: 0-6; Units: /HPF; Status: F Test: MUCUS, URINE; Value: SMALL; Range: NEGATIVE; Status: F Test: HYALINE CAST, URINE AUTO; Value: 0; Range: 0-1; Units: /LPF; Status: F Lab Order: Urine Culture; SPEC'M 11/06/16 10:32 Test: URINE CULTURE; Value: <EXTERNAL COMMENT eCWMed> FULL REPORT IN LAB NOTES (eCW and Medent).; Status: F Test: URINE CULTURE; Value: URINE CULTURE RESULT NO GROWTH; Status: F Radiology Order: CT ABD & PELVIS: IV Contrast Only Test: CT ABD & PELVIS: IV Contrast Only REASON FOR EXAMINATION: lower abd pain and rectal bleeding; CT STUDY OF THE ABDOMEN AND PELVIS WITH IV BUT WITHOUT ORAL CONTRAST:; ; HISTORY: Lower abdominal pain and rectal bleeding.; ; CT contrast dose: 100 mL of Isovue 370 is administered intravenously.; ; CT FINDINGS: Digital sales intern radiograph is unremarkable. The lung bases are; clear. The liver and the spleen are homogeneous in texture. The spleen is felt; to be mildly enlarged measuring up to 14 cm in greatest dimension. No focal; splenic lesion is seen. There is an accessory splenule however anteriorly and; inferiorly adjacent to the spleen. This measures 3 cm in greatest diameter. No; pancreatic abnormality is observed. No adrenal lesion is seen on either side.; The gallbladder is unremarkable, small and contracted in appearance. The kidneys; enhance symmetrically are morphologically intact. No retroperitoneal mass or; adenopathy is seen. A normal caliber aorta is seen. Small and large intestinal; bowel loops are unremarkable. A normal appendix is seen. No abdominal wall; defect is observed. There are one or two dystrophic calcifications in the; prostate. Seminal vesicles and urinary bladder are intact. Bone window settings; shows no acute bony abnormality. There is an old wedge compression fracture; deformity at the L3 vertebral body level with secondary osteophyte formation; anteriorly.; ; IMPRESSION:; ; 1. Mildly enlarged spleen, 14 cm.; ; 2. Otherwise no acute intra-abdominal abnormality. Dystrophic calcifications in; the prostate gland.; ; 3. Normal appendix; ; .4. Old mild compression fracture deformity at L3.; ; ; Signed by; Arnulfo Willson MD 11/06/2016 01:19 P; Outcome: 11:32 CT Study completed. ms18 13:15 Discharge ordered by Provider. ef1 13:40 Discharge Assessment: Patient awake, alert and oriented x 3. No cognitive and/or ms18 functional deficits noted. Patient verbalized understanding of disposition instructions. patient administered narcotics - no. The following High Risk Discharge criteria are identified: None. Discharged to home ambulatory, with family. Condition: good Condition: stable Condition: improved. Discharge instructions given to patient, Instructed on discharge instructions, follow up and referral plans. medication usage, Demonstrated understanding of instructions, medications, Pt was receptive of discharge instructions/ teaching. Prescriptions given X 3. 13:43 Patient left the ED. ms18 Signatures: Dispatcher MedHost EDMS Amrita Young, RN RN Elen Thompson RN RN Rachel Durand, DINA STATION USHER jam1 Taylor Rg, Reg Reg gb Lis Colvin,RN RN kr3 Mariana Ricketts, PA-C PA-C efEnma Barrow Marlynn mm15 Indu Shankar,CHERY RN ms18 Chart Complete MTDD
== END 2016-11-06 13:43 | disposition home or self-care (01) ==
LOC: M ED 09:40
DX: R16.1 Splenomegaly, not elsewhere classified (principal); N42.0 Calculus of prostate; S32.030A Wedge compression fracture of third lumbar vertebra, initial encounter for closed fracture; X58.XXXA Exposure to other specified factors, initial encounter; Y92.89 Other specified places as the place of occurrence of the external cause; Y93.89 Activity, other specified; Y99.8 Other external cause status; K92.1 Melena; F41.9 Anxiety disorder, unspecified; F43.10 Post-traumatic stress disorder, unspecified; Z79.899 Other long term (current) drug therapy; Z88.2 Allergy status to sulfonamides
CPT/HCPCS: 36415; 74177; 80048; 80076; 81001; 82150; 83690; 85025; 87086; 96361; 96374; 96375; 99284; J1885; J2405; Q9967

== ENCOUNTER → 2019-08-03 | Outpatient (REF) | payer BC ==
[2019-08-03 11:48] LABS: CHOLESTEROL RISK RATIO 5.485 (<5)
[2019-08-03 12:40] LABS: HEMOGLOBIN A1c 4.8 %
== END ==
LOC: M SFHCLERA 10:04
PROVIDERS: ATTEND Family Medicine
DX: E66.3 Overweight (principal)

== ENCOUNTER → 2024-10-12 | Outpatient (REF) | payer OTHER | LOC: M SFHCDERM 08:19 | PROVIDERS: ATTEND Nurse Practitioner Family | DX: L57.0 Actinic keratosis (principal) ==